=== PATIENT | female | born 1955 | race Caucasian/White ===

== ENCOUNTER 2018-09-25 19:34 | Emergency (ER) | payer OTHER ==
[~2018-09-25] VITALS: Ht 167.6 cm; Wt 72.5 kg
[~2018-09-25 19:34] MED LIST: AMLO-145; ATIVAN; BUPR-166; HCTZ; LEVO500V2; LISI2.5T59
[2018-09-25 19:36] VITALS: Ht 167.6 cm; Wt 72.5 kg
[2018-09-25] MEDS ORDERED: ASPIRIN 325 MG TAB PO STA (19:37)
--- NOTE | 2018-09-25 19:47 | ERD ---
ER Documentation Chief Complaint Chief Complaint bib ra from home for cp x 3 hours, hx of htn, no radiating quality HPI This is a 62-year-old female with a past medical history of hypertension. The patient indicates that 3 hours prior to arrival she developed sharp pressure- like sensation in the midportion of her chest. The pain has been intermittent for 3 hours. She says it would last for roughly 30 minutes and then will spon taneously resolved. It intensified just prior to arrival and therefore she phoned 911. She had associated symptoms of nausea and dizziness but did not experience any emesis. She denies a headache. She has no shortness of breath at rest or exertion. She stated she took nitroglycerin in route given by EMS but she indicated there is no improvement of her symptoms. She has no swelling of her lower extremities. She does not smoke tobacco. She also has a history of hypothyroidism states she is been compliant with all of her medications ROS All systems reviewed and are negative except as per history of present illness. Medications Home Meds Reported Medications [Ativan] No Conflict Check 12/28/12 Levothyroxine Sodium* (Levothyroxine* INJ) 500 Mcg Soln 12/28/12 Lisinopril* (Lisinopril*) 2.5 Mg Tablet 12/28/12 [Hctz] No Conflict Check 12/28/12 Bupropion Hcl* (Wellbutrin*) 75 Mg Tab 12/28/12 Amlodipine Besylate* (Amlodipine Besylate*) 5 Mg Tablet 12/28/12 Allergies Allergies: Coded Allergies: No Known Allergy (Unverified , 12/28/12) PMhx/Soc Hx Psychiatric Problems: No Hx Miscellaneous Medical Probl: Yes (DM) Hx Alcohol Use: No Hx Substance Use: No Hx Tobacco Use: No Smoking Status: Never smoker Physical Exam Vitals Vital Signs Date Temp Pulse Resp B/P (MAP) Pulse Ox O2 O2 Flow FiO2 Time Delivery Rate 09/25/18 98.7 58 19 141/79 100 19:36 (99) Physical Exam Constitutional:Well-developed. Well-nourished. HEENT:Normocephalic. Atraumatic.Pupils were equal round reactive to light. Moist mucous membranes.No tonsillar exudates. Neck: No nuchal rigidity. No lymphadenopathy. No posterior cervical spine tenderness or step-offs. Respiratory: Not using accessory muscles of respiration.Lungs were clear to auscultation bilaterally. No rhonchi. No rales. No wheezing. Cardiovascular: Regular rate regular rhythm.No murmurs. No rubs were appreciated.S1, S2 normal. Distal pulses are palpable 2+ bilaterally. GI: Abdomen was soft. Nontender. Non Distended. No pulsatile abdominal masses or bruits. No rebound. No guarding. Bowel sounds were present and normal. Muscle skeletal: Full range of motion of both the upper and lower extremities bilaterally.Normal muscle tone.No assymetrical calf tenderness or swelling. Skin: No petechia, no purpura. No lesions on the palms or the soles of the feet. No maculopapular rash. NEURO: Patient was alert, awake, orientated x3.No facial droop. Gait observed and normal with no ataxia.Speech had regular rate and rhythm. No focal neurological deficits. Result Diagram: 09/25/18193909/25/181939 Results 24 hrs Laboratory Tests Test 09/25/18 19:40 White Blood Count 7.2 10^3/ul Red Blood Count 4.79 10^6/ul Hemoglobin 14.1 g/dl Hematocrit 42.0 % Mean Corpuscular Volume 87.7 fl Mean Corpuscular Hemoglobin 29.4 pg Mean Corpuscular Hemoglobin Concent 33.6 g/dl Red Cell Distribution Width 11.7 % Platelet Count 216 10^3/UL Mean Platelet Volume 10.0 fl Immature Granulocytes % 0.300 % Neutrophils % 49.1 % Lymphocytes % 41.6 % Monocytes % 8.2 % Eosinophils % 0.0 % Basophils % 0.8 % Nucleated Red Blood Cells % 0.0 /100WBC Immature Granulocytes # 0.020 10^3/ul Neutrophils # 3.6 10^3/ul Lymphocytes # 3.0 10^3/ul Monocytes # 0.6 10^3/ul Eosinophils # 0.0 10^3/ul Basophils # 0.1 10^3/ul Nucleated Red Blood Cells # 0.0 10^3/ul Prothrombin Time 13.1 Sec Prothrombin Time Ratio 1.0 INR International Normalized Ratio 0.98 Activated Partial Thromboplast Time 25.3 Sec Sodium Level 143 mmol/L Potassium Level 3.9 mmol/L Chloride Level 108 mmol/L Carbon Dioxide Level 25 mmol/L Anion Gap 10 Blood Urea Nitrogen 19 mg/dl Creatinine 0.62 mg/dl Est Glomerular Filtrat Rate mL/min > 60 mL/min Glucose Level 116 mg/dl Calcium Level 9.7 mg/dl Total Bilirubin 0.4 mg/dl Direct Bilirubin 0.00 mg/dl Indirect Bilirubin 0.4 mg/dl Aspartate Amino Transf (AST/SGOT) 43 IU/L Alanine Aminotransferase (ALT/SGPT) 58 IU/L Alkaline Phosphatase 151 IU/L Creatine Kinase 50 IU/L Creatine Kinase Index 0.4 Creatinine Kinase MB (Mass) < 0.22 ng/ml Troponin I < 0.012 ng/ml B-Type Natriuretic Peptide 64 PG/ML Total Protein 7.6 g/dl Albumin 4.3 g/dl Globulin 3.30 g/dl Albumin/Globulin Ratio 1.30 Current Medications Medications Dose Sig/Magda Start Time Status Last (Trade) Ordered Route PRN Stop Time Admin Dose Reason Admin Aspirin 325 mg ONCE STAT 09/25/18 DC 09/25/18 (Aspirin) PO 19:37 09/25/18 19:46 19:38 1 tab Q5M UP TO 3 09/25/18 Cancel Nitroglycerin DOSES PRN 20:00 SL .CHEST (Nitroglyceri PAIN n (Sl Tab) 0.4 Mg) Morphine 4 mg ONCE STAT 09/25/18 DC Sulfate IV 21:21 09/25/18 (morphine) 21:22 Ondansetron 4 mg ONCE STAT 09/25/18 DC HCl (Zofran IV 21:21 09/25/18 Inj) 21:22 Procedures/MDM The patient presented to the emergency department with chest pain. My clinical evaluation and workup was to distinguish minor causes of chest pain from acute life threatening conditions such as myocardial infarction, pulmonary embolism, aortic dissection, esophageal rupture, cardiac tamponade. The patient was placed on a core piler and continuous pulse oximetry. IV access established by nursing staff. The patient was given aspirin. She was also given morphine and Zofran for pain control. 12 Lead EKG tracing ordered and reviewed by myself showed: Sinus pericardial 50. Bpm and no arrhythmia. ND interval normal. QRS duration normal. No ST segment elevation. Left axis deviation No ST segment depression. No changes consistent with acute ischemia. 1 view chest radiograph reviewed by myself showed no infiltrates no pneumothorax or pleural effusions. I did feel the patient required admission for serial twelve-lead EKG tracings and cardiac set of enzymes. She will be transferred to [facility]. My clinical suspicion was low for pulmonary embolism or aortic dissection. Departure Diagnosis: Primary Impression: Chest pain Chest pain type: unspecified Qualified Codes: R07.9 - Chest pain, unspecified Condition: Serious CALI RAMIREZ MD Sep 25, 2018 19:47
[2018-09-25] MEDS ORDERED: NITROGLYCERIN (SL) 0.4 MG TAB SL PRN (20:00)
[2018-09-25] MEDS ORDERED: morphine 4 MG/ML VIAL IV STA (21:21)
[2018-09-25] MEDS ORDERED: ONDANSETRON 4 MG INJ IV STA (21:21)
[2018-09-25 22:49] VITALS: BP 142/79; PULSE 58; RESP 18
== END 2018-09-25 22:58 | disposition short-term general hospital (02) ==
LOC: E/R 19:34
DX: R07.9 Chest pain, unspecified (principal); E11.9 Type 2 diabetes mellitus without complications; I10 Essential (primary) hypertension
CPT/HCPCS: 36415; 71045; 80053; 82550; 82553; 83880; 84484; 85025; 85610; 85730; 93005; 96374; 96375; 99285; J2270; J2405